=== PATIENT | female | born 1990 | race Two or more races ===

== ENCOUNTER 2022-11-19 15:00 | Emergency (ER) | payer OTHER ==
[~2022-11-19] VITALS: Ht 165.1 cm; Wt 103.4 kg
[2022-11-19] MEDS ORDERED: LIDOCAINE 2% 20 ML MDV TP ONE (15:30)
[2022-11-19] MEDS ORDERED: LIDOCAINE 2% 20 ML MDV ONE (15:34)
[2022-11-19] MEDS ORDERED: HYDR-4303 PO (16:07)
[2022-11-19] MEDS ORDERED: IBUP-1953 PO (16:07)
[2022-11-19 16:21] VITALS: BP 134/78; TEMP 98; O2SAT 100
== END 2022-11-19 16:21 | disposition home or self-care (01) ==
LOC: ER 15:18
DX: S62.617A Displaced fracture of proximal phalanx of left little finger, initial encounter for closed fracture (principal); Z88.5 Allergy status to narcotic agent; W19.XXXA Unspecified fall, initial encounter; Y93.89 Activity, other specified; Y92.89 Other specified places as the place of occurrence of the external cause; Y99.8 Other external cause status
CPT/HCPCS: 26725; 73130; 73140; 99152; 99285; J3490; G0500